=== PATIENT | male | born 1965 | race Caucasian/White ===

== ENCOUNTER → 2024-05-04 15:08 | Outpatient (REF) | payer OTHER, SELFPAY | LOC: MRI 3T 15:08 | PROVIDERS: ATTENDING PHYSICIAN Physician Assistant Medical | DX: R47.1 Dysarthria and anarthria (principal); R47.9 Unspecified speech disturbances | CPT/HCPCS: 70553; A9575 ==

== ENCOUNTER 2024-09-13 18:12 | Emergency (ER) | payer OTHER, SELFPAY ==
[2024-09-13 18:23] VITALS: BP 128/75
[2024-09-13 18:48] VITALS: BP 123/80
[2024-09-13 19:00] VITALS: BP 112/81
--- NOTE | 2024-09-13 19:47 | ED.GENMED ---
History of Present Illness
General
Chief Complaint: Seizure
Source: patient and family
Exam Limitations: none
Time Seen by Provider: 09/13/24 19:21
History of Present Illness
History of Present Illness:
See MDM
Past History
Past History
ED Past Medical History: HTN and Other (Aphasia)
Social History
Tobacco: Non-smoker
Alcohol: None
Phy Exam
Physical Exam
Physical Exam:
See MDM
Course
Orders/Labs/Results
Orders:
Orders
09/13/24 19:45
0.9% Sodium Chloride 1000 ml [Nss] 1,000 ml IV BOLUS
09/13/24 19:46
Electrocardiogram (*1) Urgent
Reason for Study: Syncope
EKG- Treatment ONCE
09/13/24 20:19
Complete Blood Count/With Diff Urgent
Comprehensive Metabolic Panel Urgent
Magnesium Urgent
Troponin I Urgent
Abnormal Lab Results
09/13/24
20:19
WBC 15.3 H 10^3/uL
(4.8-10.8)
Abs Immat Gran (auto) 0.1 H 10^3/uL
(0-0.05)
Absolute Neuts (auto) 13.3 H 10^3/uL
(1.4-6.5)
Absolute Monos (auto) 0.7 H 10^3/uL
(0.1-0.6)
Neutrophils % 86.8 H %
(42.2-75.2)
Lymphocytes % 7.6 L %
(20.5-51.1)
Glucose 130 H mg/dl
(70-99)
09/13/24 20:19
09/13/24 20:19
Vital Signs
Initial and Last Documented VS:
Initial Vital Signs
Temp Pulse Resp BP Pulse Ox
97.7 F 71 18 128/75 96
09/13/24 18:23 09/13/24 18:23 09/13/24 18:23 09/13/24 18:23 09/13/24 18:23
Last Documented Vital Signs
Temp Pulse Resp BP Pulse Ox
97.7 F 64 17 116/67 94
09/13/24 18:23 09/13/24 21:00 09/13/24 21:00 09/13/24 21:00 09/13/24 21:00
MDM/Problems Addressed
Differential Diagnosis Includes:
HPI and MDM Narrative:
58-year-old male presenting for evaluation of syncope and convulsions. Patient felt off and he started to lower himself to the floor and family brought him to the ground. There was no trauma. He apparently was aching for 15 seconds and his eyes
were twitching. They indicated that he woke up quickly after the episode but appeared 'off' for approximately 45 minutes. He did have an issue like this a few weeks ago where he was diaphoretic and syncopized. However, at that time, there was no
'off' period. Patient states he is feeling much better now. Patient communicates with hand gestures. He is nonverbal and this has been a progressive issue for several years. He is currently being worked up by a [facility] neurologist Dr. Daniel.
Family states he just had a recent brain MRI indicating that there is no concern for underlying mass. Will obtain basic blood work, EKG and keep on the monitor. He does have mildly dry mucous membranes. Will give IV fluids
Physical exam
General: Well appearing and non-toxic
HEENT: protecting airway. Dry mucous membranes
Neck: supple
CV: No evidence of cyanosis. Regular rate and rhythm
Resp: No accessory muscle use
Abd: Non-distended
Extremities: No deformities
Neuro: alert. Aphasic. Muscle strength and sensation grossly intact to all extremities
Psych: Normal affect
Skin: Intact
Problems Addressed including Acute and Chronic Conditions affecting care:
1. Seizure versus myoclonic syncope
Acuity: acute
Prognosis: stable
Details: Will obtain basic blood work, EKG and provide IV fluids. Patient will require Holter monitor
Updates
7:45 PM I did discuss the case with his [facility] neurologist Dr. Daniel. He had indicated that story was more concerning as a cardiac arrhythmia to him. One of the current differential diagnosis for his neurologic disorder could be amyloidosis which
could increase cardiac arrhythmias. He will follow the patient up tomorrow regardless. He is less concerned about underlying seizure disorder
I had a long discussion with the patient, family at bedside and indicating no driving until cleared by his neurologist. Everyone in the room agreed and acknowledged.
At this point, I relayed my discussion with patient and . We discussed admitting overnight for telemetry monitoring and cardiology evaluation. However, patient states he feels comfortable going home and continuing the possible cardiac
arrhythmia workup as an outpatient which includes Holter by cardiology or PCP
9:37 PM after prolonged observation, patient was remained sinus rhythm on the monitor. We discussed nonspecific leukocytosis. He is feeling better after IV fluids. They went to go home and finish the workup as an outpatient.
Differential Diagnosis (but not limited to): Myoclonic syncope, seizure
Testing considered: CT head but states he had a recent brain MRI
Drug therapy (if applicable): OTC meds, please see d/c instruction regarding Rx drugs
Amount and/or Complexity of Data Reviewed
Clinical info obtained from: Patient
External data reviewed: N/A
Labs I independently reviewed (but not limited to): Mild leukocytosis
Radiology: N/A
Pulse Ox: not hypoxic
EKG independently reviewed: Sinus rhythm
Clinical Recruiter: N/A
Critical Care: N/A
Risk of Complication:
Social Determinants of health: Good social support
Discussed with other providers: Patient's neurologist
Escalation of Care includes Admit/Obs: After being observed in the Emergency Department, pt stable for discharge.
Occasional wrong word or 'sound a like' substitutions may have occurred due to the inherent limitations of voice recognition software. Read the chart carefully and recognize, using context, where substitutions have occurred.
*Critical Care Note
Total Time (30-74mins, 75-104mins- exclusive of procedures): Not Applicable
ED Attending Note
-
Portions of this chart may have been created with voice recognition software.� Occasional wrong word or��sound alike� substitutions may have occurred due to the inherent limitations of voice recognition software.
Discharge Plan
Departure
Patient Disposition: Home (Routine Discharge)
Date of Disposition: 09/13/24
Time of Disposition: 21:38
Patient with high blood pressure during this ER visit?: No
Discharge Problem:
Syncope
Instructions: Syncope (Fainting) (DC), Chest Pain DCA Follow Up
Referrals:
Caity Tucker PA-C [Family Provider] -
Lai Drew, [Active] -
Activity Restrictions/Additional Instructions:
As we discussed, it is not clear whether or not you had a seizure or a shaking episode after passing out. Regardless, do not drive a car until cleared by your neurologist. Your symptoms could be related to an abnormal cardiac arrhythmia. You
would benefit from a Holter monitor. Please talk to your primary care doctor about having this set up.
You were placed on the cardiac callback tracker. Someone from their office should call you in the next few days. If you do not hear from them in the next few days, please give them a call.
Please return for any worsening symptoms.
You may return at any time if you have further concerns.
Interventions
Interventions:
*Risk Screen - Suicide Last Done: 09/13/24 18:23
*General Assessment Last Done: 09/13/24 19:51
*Neglect/Abuse Screening Last Done: 09/13/24 19:51
ED- Fall Risk Assessment Last Done: 09/13/24 19:55
*ED COVID-19 Vaccine History Last Done: 09/13/24 19:51
ED- Neurological Assessment Last Done: 09/13/24 19:55
ED- Pulmonary Assessment Last Done: 09/13/24 19:55
Discharge Date and Time
Print Language: MALDIVIAN
[2024-09-13 19:50] VITALS: BMI 33.2
[2024-09-13 20:00] VITALS: BP 121/76
[2024-09-13] MEDS: NSS 1000 IV (20:16)
[2024-09-13 20:26] LABS: % Basophils 0.5 % (0-2); % Eosinophils 0.2 % (0-6); % Immature Granulocytes 0.5 % (0-0.5); % Lymphocytes 7.6 % (20.5-51.1); % Monocytes 4.4 % (1.7-9.3); % Neutrophils 86.8 % (42.2-75.2); Absolute Basophils 0.1 10^3/uL (0-0.2); Absolute Immature Granulocytes 0.1 10^3/uL (0-0.05); Absolute Lymphocytes 1.2 10^3/uL (1.2-3.4); Absolute Monocytes 0.7 10^3/uL (0.1-0.6); Absolute Neutrophils 13.3 10^3/uL (1.4-6.5); Hematocrit 45.4 % (39.0-52.0); Mean Corp Hgb Conc. 35.2 g/dL (33.0-37.0); Mean Corpuscular Hgb 29.1 pg (27.0-31.0); Mean Corpuscular Volume 82.7 fL (80.0-94.0); Mean Platelet Volume 9.6 fL (7.4-10.4); Nucleated Red Blood Cells % 0 % (-); Platelet Count 273 10^3/uL (130-400); Red Blood Cell Count 5.49 10^6/uL (4.70-6.10); Red Cell Dist. Width 13.6 % (11.5-14.5); White Blood Cell Count 15.3 10^3/uL (4.8-10.8)
[2024-09-13 20:48] LABS: ALT (SGPT) 33 U/L (0-50); AST (SGOT) 25 U/L (17-59); Albumin 4.8 g/dl (3.5-5.0); Alkaline Phosphatase 61 U/L (38-126); Blood Urea Nitrogen 17 mg/dl (9-20); Calcium 9.7 mg/dl (8.4-10.2); Carbon Dioxide 25 mmol/L (22-30); Chloride 100 mmol/L (98-107); Estimated Creatinine Clearance 77 ml/min; Glucose 130 mg/dl (70-99); Magnesium 2.3 mg/dl (1.6-2.3); Potassium 4.7 mmol/L (3.5-5.1); Sodium 140 mmol/L (135-145); Total Bilirubin 0.4 mg/dl (0.2-1.3); Total Protein 7.3 g/dl (6.3-8.2); eGFR > 60.00
[2024-09-13 20:52] LABS: Troponin I < 0.012 ng/ml
[2024-09-13 21:00] VITALS: BP 116/67
[2024-09-13 22:12] VITALS: BP 116/67
== END 2024-09-13 22:13 | disposition home or self-care (01) ==
LOC: EMR 18:12
PROVIDERS: EMERGENCY PHYSICIAN Student in an Organized Health Care Education/Training Program; FAMILY PHYSICIAN Physician Assistant Medical
DX: R55 Syncope and collapse (principal); I10 Essential (primary) hypertension; R47.01 Aphasia
CPT/HCPCS: 96360; 99284; 80053; 83735; 84484; 85025; 93005

== ENCOUNTER → 2024-10-06 14:52 | Outpatient (REF) | payer OTHER, SELFPAY | LOC: RCS 14:52 | PROVIDERS: ATTENDING PHYSICIAN Internal Medicine Cardiovascular Disease; FAMILY PHYSICIAN Physician Assistant Medical | DX: R55 Syncope and collapse (principal) | CPT/HCPCS: 93306 ==

== ENCOUNTER → 2025-03-04 09:57 | Outpatient (REF) | payer OTHER, SELFPAY | LOC: HWCARD 09:57 | PROVIDERS: ATTENDING PHYSICIAN Psychiatry & Neurology Neurology; FAMILY PHYSICIAN Physician Assistant Medical | DX: R00.2 Palpitations (principal) | CPT/HCPCS: 93005 ==